=== PATIENT | female | born 1955 | race Caucasian/White ===

== ENCOUNTER 2018-05-02 14:11 | Outpatient (CLI) | payer OTHER ==
--- NOTE | 2018-05-02 17:33 | MMO ---
BILATERAL SCREENING MAMMOGRAM: 05/02/18 INDICATION: Annual exam. COMPARISON: Prior exam dated 02/29/16. FINDINGS: The interpretation of the exam was assisted with computer aided detection. The breast parenchyma is extremely dense which limits the sensitivity of mammography. No new suspicio us mass, cluster of microcalcification or area of architectural distortion is evident. IMPRESSION: BIRADS 1: Negative Routine annual screening mammography (for women over age 40) POS: [facility]
== END 2018-05-02 14:12 | disposition home or self-care (01) ==
LOC: SCSMAMMO 14:11
PROVIDERS: ATTEND Internal Medicine
DX: Z12.31 Encounter for screening mammogram for malignant neoplasm of breast (principal)
CPT/HCPCS: 77067